=== PATIENT | female | born 1960 | race African-American/Black ===

== ENCOUNTER 2021-10-29 12:06 | Day surgery (SDC) | payer BC ==
[2021-10-27 15:57] VITALS: BMI 36.8
[2021-10-29] MEDS ORDERED: Lidocaine 2% Jelly 5 ML TUBE ONE (14:02)
[2021-10-29] MEDS ORDERED: fentaNYL Citrate/PF 100 MCG/2 ML SYRINGE ONE ×3 (14:02→17:34)
[2021-10-29] MEDS ORDERED: HYDROmorphone 2 MG/ML VIAL ONE (15:05)
[2021-10-29] MEDS ORDERED: Lidocaine 1% w/Epinephrine 1:100K 20 ML VIAL ONE (15:18)
[2021-10-29] MEDS ORDERED: Bupivacaine 0.25% 10 ML VIAL ONE (15:18)
[2021-10-29] MEDS ORDERED: Ketorolac Tromethamine 30 MG/ML VIAL ONE (17:11)
[2021-10-29] MEDS ORDERED: HYDROcodone/Acetaminophen 5/325 mg Tablet ONE (18:28)
[2021-10-29] MEDS ORDERED: Ondansetron ODT 8 MG TAB ONE (19:30)
== END 2021-10-29 19:37 | disposition home or self-care (01) ==
LOC: SDC 12:06
PROVIDERS: ATTEND Surgery
PROC: 8E0W4CZ Robotic Assisted Procedure of Trunk Region, Percutaneous Endoscopic Approach (ICD-10-PCS; principal; 2021-10-29)
PROC: 0WUF4JZ Supplement Abdominal Wall with Synthetic Substitute, Percutaneous Endoscopic Approach (ICD-10-PCS; principal; 2021-10-29)
DX: K43.2 Incisional hernia without obstruction or gangrene (principal); K21.9 Gastro-esophageal reflux disease without esophagitis; E78.5 Hyperlipidemia, unspecified; I10 Essential (primary) hypertension; Z79.899 Other long term (current) drug therapy
CPT/HCPCS: C1781; J1170; J1885; Q0162; S0020

== ENCOUNTER 2025-01-19 10:01 | Day surgery (SDC) | payer MEDICARE ==
[2025-01-18 09:56] VITALS: BMI 36.6
[2025-01-19] MEDS ORDERED: Lidocaine 1% (PF) 30 ML VIAL ONE (10:52)
[2025-01-19] MEDS ORDERED: Iopamidol 370 76% 100 ML VIAL ONE (12:05)
== END 2025-01-19 17:28 | disposition home or self-care (01) ==
LOC: SDC 10:01
PROVIDERS: ATTEND Internal Medicine Cardiovascular Disease
PROC: 06PY3DZ Removal of Intraluminal Device from Lower Vein, Percutaneous Approach (ICD-10-PCS; principal; 2025-01-19)
DX: I82.409 Acute embolism and thrombosis of unspecified deep veins of unspecified lower extremity (principal); I10 Essential (primary) hypertension; Z98.49 Cataract extraction status, unspecified eye; Z90.710 Acquired absence of both cervix and uterus; Z79.899 Other long term (current) drug therapy
CPT/HCPCS: 37193; C1769 ×3; C1773; C1894 ×3; J2250; J3010; Q9967; 99152; 99153